=== PATIENT | male | born 1970 | race Caucasian/White ===

== ENCOUNTER → 2016-09-08 | Outpatient (REF) | payer MEDICARE ==
[~2016-09-08] MED LIST: ARTISOL OP; CLON1TAB PO; MELA3TAB17 PO; NAPR500T2 PO; OXYC5TAB2 PO; PRAZ2CAP PO; QUET100T PO; ZOLP-189 PO
[2016-09-08 13:55] LABS: BASO # 0.1 K/mm3 (0.0-0.2); BASO % 0.9 % (0.0-1.0); EOS # 0.2 K/mm3 (0.0-0.50); EOS % 2.7 % (0.0-3.0); LARGE UNSTAINED CELL # 0.2 K/mm3 (0.0-0.4); LARGE UNSTAINED CELL % 3.1 % (0.0-4.0); LYMPH # 2.7 K/mm3 (1.5-4.5); LYMPH % 40.2 % (24.0-44.0); MEAN CORPUSCULAR HEMOGLOBIN 28.9 pg (27.0-33.0); MEAN CORPUSCULAR HGB CONC 34.4 g/dl (32.0-36.5); MEAN CORPUSCULAR VOLUME 84.2 fl (80.0-96.0); MONO # 0.4 K/mm3 (0.0-0.8); MONO % 6.4 % (0.0-5.0); NEUTROPHILS # 3.1 K/mm3 (1.8-7.7); NEUTROPHILS % 46.7 % (36.0-66.0); PLATELET COUNT, AUTOMATED 240 k/mm3 (150-450); RED CELL DISTRIBUTION WIDTH 12.8 % (11.5-14.5); WHITE BLOOD COUNT 6.7 K/mm3 (4.0-10.0)
[2016-09-08 14:34] LABS: ALBUMIN 3.9 GM/DL (3.2-5.2); ALBUMIN/GLOBULIN RATIO 1.11 (1.00-1.93); ALKALINE PHOSPHATASE 148 U/L (45-117); ALT/SGPT 112 U/L (12-78); ANION GAP 11 MEQ/L (8-16); AST/SGOT 62 U/L (15-37); BILIRUBIN,TOTAL 0.8 MG/DL (0.2-1.0); BLOOD UREA NITROGEN 12 MG/DL (7-18); CALCIUM LEVEL 8.9 MG/DL (8.5-10.1); CARBON DIOXIDE LEVEL 24 MEQ/L (21-32); CHLORIDE LEVEL 104 MEQ/L (98-107); CHOLESTEROL LEVEL 196 MG/DL (<200); CREATININE FOR GFR 0.96 MG/DL (0.70-1.30); FERRITIN 299 NG/ML (26-388); GLOMERULAR FILTRATION RATE > 60.0 (>60); GLUCOSE, FASTING 275 MG/DL (70-105); PERCENT SATURATION 25.6 % (19.7-37.4); POTASSIUM SERUM 4.1 MEQ/L (3.5-5.1); SODIUM LEVEL 139 MEQ/L (136-145); TOTAL IRON BINDING CAPACITY 340 UG/DL (250-450); TOTAL PROTEIN 7.4 GM/DL (6.4-8.2); TRIGLYCERIDES LEVEL 201 MG/DL (<150)
== END ==
LOC: M SFHCPLAZ 09:21
PROVIDERS: ATTEND Physician Assistant
DX: R94.5 Abnormal results of liver function studies (principal); R03.0 Elevated blood-pressure reading, without diagnosis of hypertension; R73.9 Hyperglycemia, unspecified; E78.5 Hyperlipidemia, unspecified; Z79.899 Other long term (current) drug therapy

== ENCOUNTER → 2016-09-14 | Outpatient (CLI) | payer MEDICARE ==
--- NOTE | 2016-09-14 09:10 | REP ---
Clinical: Elevated liver function tests. Technique: Real time archibald scale ultrasound examination using curved array transducer. Findings: The liver is upper limits of normal in size and demonstrates diffuse increased echogenicity suggesting fatty infiltration of focal fatty sparing at the gallbladder fossa. No focal hepatic lesions are identified. The pancreas is unremarkable. The gallbladder is normal and without gallstones, wall thickening, or pericholecystic fluid. No biliary ductal dilatation is appreciated and the common bile duct measures 4.4 mm diameter. The right kidney is normal in reniform shape and measures 12.8 x 7.0 x 6.0 cm without hydronephrosis. No ascites in the visualized right upper quadrant. Impression: Fatty infiltration to the liver with focal fatty sparing at the gallbladder fossa. Signed by Nicolás Raza MD 09/14/2016 09:01 A
== END ==
LOC: M RAD 08:12
PROVIDERS: ATTEND Physician Assistant
DX: R94.5 Abnormal results of liver function studies (principal); K76.0 Fatty (change of) liver, not elsewhere classified

== ENCOUNTER → 2016-11-13 | Outpatient (REF) | payer MEDICARE ==
[2016-11-13 13:08] LABS: ALBUMIN 3.7 GM/DL (3.2-5.2); ALBUMIN/GLOBULIN RATIO 1.03 (1.00-1.93); ALKALINE PHOSPHATASE 102 U/L (45-117); ALT/SGPT 55 U/L (12-78); ANION GAP 9 MEQ/L (8-16); AST/SGOT 24 U/L (15-37); BILIRUBIN,TOTAL 0.5 MG/DL (0.2-1.0); BLOOD UREA NITROGEN 14 MG/DL (7-18); CARBON DIOXIDE LEVEL 25 MEQ/L (21-32); CHLORIDE LEVEL 104 MEQ/L (98-107); CHOLESTEROL LEVEL 211 MG/DL (<200); CREATININE FOR GFR 0.99 MG/DL (0.70-1.30); GLOMERULAR FILTRATION RATE > 60.0 (>60); GLUCOSE, FASTING 119 MG/DL (70-105); POTASSIUM SERUM 4.2 MEQ/L (3.5-5.1); SODIUM LEVEL 138 MEQ/L (136-145); TOTAL PROTEIN 7.3 GM/DL (6.4-8.2); TRIGLYCERIDES LEVEL 132 MG/DL (<150)
== END ==
LOC: M SFHCPLAZ 08:07
PROVIDERS: ATTEND Physician Assistant
DX: E11.9 Type 2 diabetes mellitus without complications (principal); E78.5 Hyperlipidemia, unspecified

== ENCOUNTER → 2017-04-07 | Outpatient (CLI) | payer MEDICARE, OTHER ==
[~2017-04-07] MED LIST changes: +ISOVUE-370 76% 100ML VIAL (Q9967) As Ordered ONE
[2017-04-07 15:13] LABS: BLOOD UREA NITROGEN 12 MG/DL (7-18); CREATININE FOR GFR 0.86 MG/DL (0.70-1.30); GLOMERULAR FILTRATION RATE > 60.0 (>60)
--- NOTE | 2017-04-07 16:05 | REP ---
CT pulmonary angiogram: With IV contrast: History: Hemoptysis. Pleurisy. Comparison studies: No comparison studies. Contrast dose: 75 cc's of Isovue [address] technique: Helical scanning is acquired and overlapping 1.5 mm and contiguous 3 mm axial images are reformatted. In addition, a 3-D work station is deployed to generate thick slab maximum intensity projection images in sagittal and coronal imaging projections. CT pulmonary angiographic findings: There is good opacification of the pulmonary arterial tree. There is no CT evidence of pulmonary embolism. The thoracic aorta enhances homogeneously and is normal in course and caliber. No evidence of aneurysm or dissection. There is no evidence of pleural or pericardial effusion. No hilar or mediastinal mass or adenopathy is observed. There is a small pleural plaque in the major fissure on the right versus a small amount of fissural fluid. No pulmonary nodule or infiltrate is seen. No mass lesion is observed. No adrenal lesion is seen on either side. Maximal intensity projection images show no additional abnormality no bony destructive lesion is seen. Impression: No CT evidence of pulmonary embolism. No active disease seen. Signed by Jesse Castorena MD 04/07/2017 05:03 P
== END ==
LOC: M LAB 12:46 → M RAD 12:46
PROVIDERS: ATTEND Internal Medicine Pulmonary Disease
DX: Z01.812 Encounter for preprocedural laboratory examination (principal); R09.1 Pleurisy; R06.00 Dyspnea, unspecified; R04.2 Hemoptysis
CPT/HCPCS: 36415; 71275; 82565; 84520; Q9967

== ENCOUNTER → 2017-04-13 | Outpatient (REF) | payer MEDICARE, OTHER ==
[~2017-04-13] MED LIST changes: -ISOVUE-370 76% 100ML VIAL (Q9967) As Ordered ONE
== END ==
LOC: M LAB REF 16:39
PROVIDERS: ATTEND Otolaryngology
DX: J35.8 Other chronic diseases of tonsils and adenoids (principal)

== ENCOUNTER → 2017-06-01 | Outpatient (CLI) | payer MEDICARE, OTHER ==
[~2017-06-01] MED LIST changes: +METHACHOLINE KIT (J7674) INH ONE
[2017-06-01 09:28] LABS: ABG BASE EXCESS 0.8 (-2.0-2.0); ABG HCO3 25.3 MEQ/L (22.0-26.0); ABG PARTIAL PRESSURE CO2 40.1 mmHg (35.0-45.0); ABG PARTIAL PRESSURE O2 107.3 mmHg (75.0-100.0); ABG STANDARD HCO3 25.2 MEQ/L (22.0-26.0); ABG TOTAL CO2 26.5 MEQ/L (22.0-29.0); ABG pH (ARTERIAL) 7.418 UNITS (7.350-7.450)
--- NOTE | 2017-06-01 09:54 | PFTRPT ---
Tech: Arsenio HADLEY RRT Age: 46 Sex: Male Race: Height: 72.00 Inches Weight: 228.00 Lbs BSA: 2.25 Diagnosis: R06.00 PULMONARY FUNCTION REPORT ORDERING PROVIDER: Minh Gill MD DATE OF SERVICE: 06/01/17 SPIROMETRY: The study is of excellent technical quality. The forced vital capacity is reduced. The FEV1 is in proportion. The obstructive index is, therefore, normal. FLOW VOLUME LOOP: The expiratory limb of the flow volume loop does suggest some nonspecific flow rate limitation. LUNG VOLUMES: The total lung capacity is normal. The residual volume raises a question of air trapping. DIFFUSION CAPACITY: The diffusion capacity is normal. HEMOGLOBIN: Hemoglobin was acceptable at 14.9. AIRWAY MECHANICS: Airway resistance and conductance are normal. IMPRESSION: Cannot rule out air trapping. Please correlate clinically. MTDD
--- NOTE | 2017-06-01 10:51 | PFTRPT ---
Tech: Arsenio HADLEY RRT Age: 46 Sex: Male Race: Height: 72.00 Inches Weight: 228.00 Lbs BSA: 2.25 Diagnosis: R06.00 METHACHOLINE CHALLENGE REPORT ORDERING PROVIDER: Minh Gill MD DATE OF SERVICE: 06/01/17 INTERPRETATION: The study was of excellent technical quality. Under protocol, methacholine was administered. At a dose of 10 mg (63.875 CDUs), a 30% decline in the FEV1 was noted. The PC20 of 3.43 is significant. Flow rates returned to baseline post bronchodilator administration. IMPRESSION: Positive methacholine challenge study. MTDD
== END ==
LOC: M CARPUL 08:51
PROVIDERS: ATTEND Internal Medicine Pulmonary Disease
DX: R06.00 Dyspnea, unspecified (principal)
CPT/HCPCS: 82803; 88738; 94010; 94070; 94726; 94729; 95070; J7674

== ENCOUNTER → 2017-12-15 | Outpatient (REF) | payer MEDICARE, OTHER ==
[2017-12-18 00:12] LABS: D001-IgE D pteronyssinus <0.10 kU/L (Class 0); E001-IgE Cat Epith/Dander < 0.10 kU/L (Class 0); E005-IgE Dog Dander < 0.10 kU/L (Class 0); G002-IgE Bermuda Grass < 0.10 kU/L (Class 0); G008-IgE Kentucky Bluegrass < 0.10 kU/L (Class 0); M001-IgE Penicillium chrysogen < 0.10 kU/L (Class 0); M002 IgE Cladosporium herbaru < 0.10 kU/L (Class 0); M003 IgE Aspergillus fumigatu < 0.10 kU/L (Class 0); M006-IgE Alternaria alternata < 0.10 kU/L (Class 0); T001-IgE Maple/Box Elder < 0.10 kU/L (Class 0); T003-IgE Common Silver Birch < 0.10 kU/L (Class 0); T006-IgE Cedar, Mountain < 0.10 kU/L (Class 0); T007-IgE Oak, White < 0.10 kU/L (Class 0); T008-IgE Elm, American < 0.10 kU/L (Class 0); T015-IgE Ash, White < 0.10 kU/L (Class 0); T041-IgE Hickory, White < 0.10 kU/L (Class 0); T070-IgE White Mulberry < 0.10 kU/L (Class 0); W001-IgE Ragweed, Short < 0.10 kU/L (Class 0); W009-IgE Plantain, English < 0.10 kU/L (Class 0); W014-IgE Pigweed, Rough < 0.10 kU/L (Class 0); W018-IgE Sheep Sorrel < 0.10 kU/L (Class 0)
== END ==
LOC: M LAB REF 12:51
DX: J45.30 Mild persistent asthma, uncomplicated (principal)
CPT/HCPCS: 82785

== ENCOUNTER → 2019-06-30 | Outpatient (CLI) | payer OTHER ==
[~2019-06-30] MED LIST changes: -METHACHOLINE KIT (J7674) INH ONE
--- NOTE | 2019-06-30 13:49 | REP ---
MRI lumbar spine: 06/30/2019. Indication: Low back pain. Comparison: None. Technique: Multiplanar short and long TR sequences of the lumbar spine were obtained without IV Gadolinium. Findings: Vertebral body alignment is anatomic. No worrisome marrow or cord signal abnormalities are present. There is disc desiccation and mild disc space narrowing at L5/S1 and to a lesser extent L4/L5. No significant paraspinal soft tissue abnormalities are detected. L1/L2, L2/L3 and L3/L4: There is no disc herniation or significant spinal canal / neural foraminal narrowing. L4/L5: Mild diffuse disc bulge, bilateral facet and ligamental hypertrophy are present. Moderate left greater than right recess narrowing is present. There is mild to moderate bilateral neural foraminal narrowing. L5/S1: There is a small left paracentral disc protrusion superimposed on a mild diffuse disc bulge with bilateral facet hypertrophy. There is moderate to severe left and moderate right recess narrowing. The neural foramen are patent. Impression: Degenerative sequelae of the lower lumbar spine as described most pronounced on the left at L5/S1. Electronically Signed by Marvin Larson DO 06/30/2019 01:40 P
== END ==
LOC: M RAD 12:06
PROVIDERS: ATTEND Internal Medicine
DX: M51.26 Other intervertebral disc displacement, lumbar region (principal); M51.27 Other intervertebral disc displacement, lumbosacral region; M46.97 Unspecified inflammatory spondylopathy, lumbosacral region; M48.07 Spinal stenosis, lumbosacral region

== ENCOUNTER → 2019-09-05 | Outpatient (CLI) | payer BC, MEDICARE ==
[2019-09-05 09:41] LABS: FREE T4 1.14 NG/DL (0.76-1.46); THYROID STIMULATING HORMONE 1.22 uIU/ML (0.358-3.740)
[2019-09-05 10:15] LABS: TOTAL 25(OH) VITAMIN D 65.7 NG/ML (30.0-100.0)
[2019-09-05 10:16] LABS: CORTISOL AM 8.3 UG/DL (4.3-22.4)
== END ==
LOC: M LAB 08:25
PROVIDERS: ATTEND Nurse Practitioner Family
DX: R63.5 Abnormal weight gain (principal); E55.9 Vitamin D deficiency, unspecified; G90.09 Other idiopathic peripheral autonomic neuropathy; Z79.899 Other long term (current) drug therapy

== ENCOUNTER 2019-09-19 16:45 | Day surgery (SDC) | payer MEDICARE ==
[~2019-09-19] VITALS: Ht 182.9 cm; Wt 116.7 kg
[2019-09-19] MEDS ORDERED: CLON1TAB8 (16:56)
[2019-09-19] MEDS ORDERED: LISI-542 (16:56)
[2019-09-19] MEDS ORDERED: ZOLP10TA2 (16:56)
[2019-09-19] MEDS ORDERED: AMOX875T2 (16:56)
[2019-09-19] MEDS ORDERED: METF850T4 (16:56)
[2019-09-19 17:27] LABS: BASO # 0.1 10^3/uL (0.0-0.2); BASO % 0.5 % (0.0-1.0); EOS % 0.2 % (0.0-3.0); HEMATOCRIT 44.2 % (42.0-52.0); HEMOGLOBIN 15.4 g/dl (13.5-17.5); LYMPH # 3.2 10^3/uL (1.5-5.0); LYMPH % 18.7 % (24.0-44.0); MEAN CORPUSCULAR HEMOGLOBIN 28.4 pg (27.0-33.0); MEAN CORPUSCULAR HGB CONC 34.8 g/dl (32.0-36.5); MEAN CORPUSCULAR VOLUME 81.4 fl (80.0-96.0); MONO # 1.4 10^3/uL (0.0-0.8); MONO % 8.3 % (0.0-5.0); NEUTROPHILS # 12.3 10^3/uL (1.5-8.5); PLATELET COUNT, AUTOMATED 254 10^3/uL (150-450); RED BLOOD COUNT 5.43 10^6/uL (4.30-6.10); WHITE BLOOD COUNT 17.2 10^3/uL (4.0-10.0)
[2019-09-19 17:36] LABS: APPEARANCE, URINE CLEAR (CLEAR); BACTERIA, URINE AUTO NEGATIVE (NEGATIVE); BILIRUBIN, URINE AUTO NEGATIVE (NEGATIVE); BLOOD, URINE BLOOD NEGATIVE (NEGATIVE); COLOR, URINE YELLOW (YELLOW); GLUCOSE, URINE (UA) AUTO 1+ mg/dL (NEGATIVE); KETONE, URINE AUTO NEGATIVE (NEGATIVE); LEUKOCYTE ESTERASE, URINE AUTO NEGATIVE (NEGATIVE); NITRITE, URINE AUTO NEGATIVE (NEGATIVE); PROTEIN, URINE AUTO NEGATIVE (NEGATIVE); RBC, URINE AUTO 2 /HPF (0-3); SPECIFIC GRAVITY URINE AUTO 1.005 (1.002-1.035); SQUAMOUS EPITHELIAL CELL UR AU 0 /HPF (0-6); UROBILINOGEN, URINE AUTO 0.2 mg/dL (0.0-2.0); WBC, URINE AUTO 1 /HPF (0-3)
[2019-09-19] MEDS ORDERED: NS 1,000 ML IV ONE (17:45)
[2019-09-19 17:51] LABS: ALBUMIN 3.9 GM/DL (3.2-5.2); BILIRUBIN,DIRECT 0.2 MG/DL (0.0-0.2); BILIRUBIN,TOTAL 0.8 MG/DL (0.2-1.0); TOTAL PROTEIN 7.5 GM/DL (6.4-8.2)
[2019-09-19] MEDS ORDERED: ISOVUE-370 76% 100ML VIAL (Q9967) As Ordered ONE (17:52)
--- NOTE | 2019-09-19 18:26 | REPVR ---
PROCEDURE INFORMATION: Exam: CT Abdomen And Pelvis With Contrast Exam date and time: 09/19/2019 5:56 PM Age: 49 years old Clinical indication: Pain and abnormal findings; Abnormal lab test; Elevated wbc; Fever and vomiting; Abdominal pain; Localized; Right upper quadrant (ruq); Additional info: Ruq abd pain, vomiting, fever, wbc 17.2 TECHNIQUE: Imaging protocol: Computed tomography of the abdomen and pelvis with intravenous contrast. Radiation optimization: All CT scans at this facility use at least one of these dose optimization techniques: automated exposure control; mA and/or kV adjustment per patient size (includes targeted exams where dose is matched to clinical indication); or iterative reconstruction. Contrast material: ISOVUE 370; Contrast volume: 100 ml; Contrast route: IV; COMPARISON: LIVER US 09/14/2016 8:27 AM FINDINGS: Lungs: Atelectatic changes are identified within both lower lobes of the lungs. Diaphragm: There is elevation of the right hemidiaphragm. Liver: There is hypodense fatty infiltration of the liver. The liver measures 19.8 cm in the craniocaudad dimension. This is consistent with hepatomegaly. Gallbladder and bile ducts: Gallstones are visualized. There is mild gallbladder wall thickening with pericholecystic fluid, consistent with acute cholecystitis in the appropriate clinical setting. Pancreas: Unremarkable. No ductal dilation. Spleen: A small splenule is identified. No splenomegaly. Adrenals: No mass. Kidneys and ureters: Unremarkable as visualized. No hydronephrosis. Stomach and bowel: There is mild stranding of the mesenteric fat adjacent to the gallbladder and hepatic flexure of the colon, consistent with inflammatory change. Mild wall thickening of the duodenum with minimal adjacent stranding. Duodenitis is considered. No bowel obstruction. Appendix: No evidence of appendicitis. Intraperitoneal space: No free air. No significant fluid collection. Vasculature: No abdominal aortic aneurysm. Lymph nodes: No enlarged lymph nodes. Bladder: Unremarkable as visualized. Reproductive: Unremarkable as visualized. Bones/joints: Small nonspecific sclerotic lesions are identified within the proximal right femur. Hypertrophic degenerative changes are noted within the spine. Bilateral sacroiliac arthropathy. There is an old fracture of the posterior left 7th rib. Soft tissues: Unremarkable. IMPRESSION: 1. Gallstones are visualized. There is mild gallbladder wall thickening with pericholecystic fluid, consistent with acute cholecystitis in the appropriate clinical setting. 2. There is mild stranding of the mesenteric fat adjacent to the gallbladder and hepatic flexure of the colon, consistent with inflammatory change. 3. Mild wall thickening of the duodenum with minimal adjacent stranding. Duodenitis is considered. 4. There is hypodense fatty infiltration of the liver. Hepatomegaly. 5. Elevation of the right hemidiaphragm. 6. Additional findings described above. Electronically signed by: Benton Ansari On 09/19/2019 18:26:16 PM
[2019-09-19] MEDS: LR 1,000 ML IV SCH (20:41)
[2019-09-19] MEDS ORDERED: ACETAMINOPHEN TAB 650MG DOSE (2X325MG) PO PRN (20:45)
[2019-09-19] MEDS ORDERED: GLUCAGON FOR INJ 1 MG VIAL (J1610) SC PRN (20:45)
[2019-09-19] MEDS ORDERED: LR 1,000 ML IV SCH (20:45)
[2019-09-19] MEDS ORDERED: GLUCOSE 4 GM CHEW TABLET PO PRN (20:45)
[2019-09-19] MEDS ORDERED: DEXTROSE 50% 50 ML SYRINGE IV PRN (20:45)
[2019-09-19] MEDS ORDERED: MORPHINE 2 MG/ML 1ML VIAL (J2270) IV PRN (20:45)
[2019-09-19] MEDS ORDERED: ONDANSETRON 4MG/2ML VIAL (J2405) IV PRN (20:45)
[2019-09-19] MEDS ORDERED: lisinopriL 5 MG TAB PO SCH (21:00)
[2019-09-19] MEDS ORDERED: IBUP1TAB6 PO (21:16)
[2019-09-19] MEDS ORDERED: AUGM875T28 PO (21:16)
[2019-09-19] MEDS ORDERED: LISI-542 PO (21:16)
[2019-09-19] MEDS ORDERED: METF-954 PO (21:16)
[2019-09-19] MEDS ORDERED: FISH1000 PO (21:16)
[2019-09-19] MEDS ORDERED: CLON1TAB8 PO (21:16)
[2019-09-19] MEDS ORDERED: ZOLP10TA2 PO (21:16)
[2019-09-19] MEDS ORDERED: ACET-897 PO (21:16)
[2019-09-19] MEDS ORDERED: REFR0.5D8 OU (21:23)
[2019-09-19] MEDS ORDERED: OXYC-517 PO (21:23)
[2019-09-19] MEDS ORDERED: ADV250INH INH (21:23)
[2019-09-19] MEDS ORDERED: PROAAER10 INH (21:31)
[2019-09-19] MEDS ORDERED: RA B1TAB7 PO (21:31)
[2019-09-19] MEDS ORDERED: LIDO2.5C15 TOP (21:31)
[2019-09-19] MEDS ORDERED: MIRA1POW3 PO (21:31)
[2019-09-19] MEDS ORDERED: ROSU40TA4 PO (21:31)
[2019-09-19] MEDS ORDERED: VITA200038 PO (21:31)
[2019-09-19] MEDS ORDERED: ACETAMINOPHEN TAB 650MG DOSE (2X325MG) As Ordered ONE (21:38)
--- NOTE | 2019-09-19 22:17 | HPE ---
DATE OF ADMISSION: 09/19/2019 ADMITTING DIAGNOSIS: Acute cholecystitis secondary to cholelithiasis. HISTORY OF PRESENT ILLNESS The patient is a pleasant 49-year-old man who reports that he had retired to bed last evening at about 09:00 p.m.. He was awakened about midnight with an episode of severe mid abdominal pain. He describes that he felt full. After a time he developed vomiting and reports that he vomited multiple times first some undigested food and then just bile. He reported feeling as if he had gas bubbles and subsequently belched several times. By about 7 o'clock in the morning he reported that the discomfort had diminished quite a bit. He had a light breakfast of half a peanut butter sandwich. He had had meatloaf for dinner the night before followed by his usual routine of a bowl of Cheerios late at night with his night time meds. He had some persistent mild abdominal discomfort which persisted. This was primarily in the right upper quadrant. He had a couple of biscuits in the afternoon. Somewhat thereafter he felt feverish. He had contacted his physician in the [facility] and he was subsequently referred to [facility] for further evaluation. In the emergency department he presented at 1645. He was found to have some tachycardia. He had tenderness in the right upper quadrant. He was evaluated with some laboratory studies that showed a white count elevated to 17,000 with a differential showing 72% neutrophils, 19% lymphocytes and 8% monocytes. His chemistry profile showed normal electrolytes with BUN of 11, creatinine 0.8, and a glucose of 115. Lactic acid was minimally elevated at 2.1. Amylase was normal and lipase was normal and the liver function tests showed a minimal elevation of the ALT to 93. A CT scan of the abdomen and pelvis was obtained which showed a markedly thickened gallbladder with suggestion of cholelithiasis and some pericholecystic fluid consistent with acute cholecystitis. I was consulted and the patient is now admitted for management of his acute cholecystitis. ALLERGIES The patient denies any known drug allergies. MEDICATIONS His current home medications include Augmentin 875/125 one tablet twice daily. This was started last week when he had a toenail excision. He is on clonazepam 1 mg by mouth nightly at bedtime, zolpidem tartrate 10 mg by mouth daily at bedtime, metformin 850 mg tablets one twice daily and lisinopril 5 mg p.o. daily at bedtime. PAST SURGICAL HISTORY: Significant only for a septoplasty. PAST MEDICAL HISTORY: Significant for type 2 diabetes over the last 3 years or so. He is currently on metformin twice daily. He reports that he saw the straddle bug last Wednesday which would have been the . His A1c most recently was 6.1. FAMILY HISTORY: Noncontributory. SOCIAL HISTORY The patient is single. He reports that he has a son who is 19 and a daughter who is 14. He is disabled and not employed currently. He is a lifetime nonsmoker and denies any significant alcohol intake. REVIEW OF SYSTEMS: Reveals no history of chest pain or palpitations or other cardiac issues. He denies melena, hematochezia, diarrhea, constipation. He has had a colonoscopy back in 2010. There is no dysuria, hematuria or renal stones. He denies any history of seizure or stroke, chronic or severe headaches. There are no significant bone or joint issues currently. There is no history of deep venous thrombosis (DVT) or pulmonary embolus. PHYSICAL EXAMINATION The patient's vital signs most recently show a temperature of 101 degrees with a pulse of approximately 100. His blood pressure in the emergency department has been slightly high in the systolic range of 146 and 158 as recorded. Room air oxygen saturation is normal. The patient is alert and oriented. He reports that he has been having what sounds like some rigors while lying here in the emergency department. Skin: Is warm and dry. Mucous membranes are moist. Sclerae are anicteric. Neck is supple. Heart: Exam shows a regular rhythm at about 100. The lungs are clear to auscultation bilaterally. The abdomen is mildly to moderately obese. The abdomen has active bowel sounds in all four quadrants. The abdomen is soft. There is some mild tenderness on palpation in the right subcostal area and the remainder of the abdomen is soft and without palpable mass or tenderness. There is no sign of hernia. Extremities: Shows no peripheral edema and he has palpable radial and pedal pulses bilaterally. LABS: Laboratory studies show a white count of 17 and the diff was as noted. His hemoglobin is 15 with a hematocrit of 44 and a platelet count of 254,000. His chemistries are as otherwise noted previously. He had a urinalysis that showed no signs of urinary tract infection. His CT scan showed findings consistent with acute cholecystitis. IMPRESSION 1. Acute cholecystitis secondary to cholelithiasis. 2. Diabetes mellitus type 2. 3. Hypercholesterolemia. 4. Current antibiotic therapy for toenail excision. PLAN Patient has less discomfort than I might anticipate at this point, though his CT scan is typical of acute cholecystitis. He has a fever and has been having rigors in the emergency department. It may be that his acute cholecystitis despite his relatively good diabetes control at this point has progressed faster due to his underlying diabetes. He does have some very mild tenderness in the right upper quadrant on palpation. I have recommended that we admit him to the hospital. We may be able to accomplish this all as a same-day surgery status and I will start there. He will be placed on some Zosyn for antibiotic coverage. I will keep him nothing by mouth (npo) except for a few ice chips tonight. I will recheck his labs in the morning. I have counseled him that he will need a cholecystectomy and that this can likely be accomplished as a laparoscopic procedure. He had an opportunity to ask questions. We will discuss the details of the surgery a little bit further in the morning but I will add him onto the schedule to have surgery in the morning where there appears to be an opening in the schedule that would allow us to proceed sometime in the late morning to around noontime. We will manage his diabetes with every 6-hour fingersticks and sliding scale insulin as necessary. His metformin will be held for now as he received contrast for his CT scan.
[2019-09-19 22:50] VITALS: BP 143/86
[2019-09-19] MEDS: PIPERACILLIN/TAZOBACTAM SOD 3.375 GM in D5W MINI-BAG PLUS 50 ML IV SCH (23:07)
[2019-09-19] MEDS: zolPIDEM TARTRATE 5 MG TAB PO SCH (23:09)
[2019-09-19] MEDS: clonazePAM 1 MG TAB PO SCH (23:09)
[2019-09-19] MEDS: LISINOPRIL *2.5 MG* TAB PO SCH (23:52)
[2019-09-20] VITALS (10 sets, daily range): BP systolic 124–139; BP diastolic 65–88
[2019-09-20] MEDS: HumaLOG INSULIN (NovoLOG) PER UNIT SC SCH ×4 (00:10→17:59)
[2019-09-20] MEDS: PIPERACILLIN/TAZOBACTAM SOD 3.375 GM in D5W MINI-BAG PLUS 50 ML IV SCH ×4 (04:06→21:23)
[2019-09-20] MEDS: LR 1,000 ML IV SCH ×2 (05:23→12:41)
[2019-09-20 06:16] LABS: BASO # 0.1 10^3/uL (0.0-0.2); BASO % 0.7 % (0.0-1.0); EOS # 0.1 10^3/uL (0.0-0.5); EOS % 0.7 % (0.0-3.0); HEMATOCRIT 40.4 % (42.0-52.0); HEMOGLOBIN 13.7 g/dl (13.5-17.5); LYMPH # 3.2 10^3/uL (1.5-5.0); LYMPH % 26.3 % (24.0-44.0); MEAN CORPUSCULAR HEMOGLOBIN 28.1 pg (27.0-33.0); MEAN CORPUSCULAR HGB CONC 33.9 g/dl (32.0-36.5); MONO # 1.3 10^3/uL (0.0-0.8); MONO % 10.4 % (0.0-5.0); NEUTROPHILS # 7.5 10^3/uL (1.5-8.5); NEUTROPHILS % 61.5 % (36.0-66.0); PLATELET COUNT, AUTOMATED 209 10^3/uL (150-450); RED BLOOD COUNT 4.87 10^6/uL (4.30-6.10); WHITE BLOOD COUNT 12.3 10^3/uL (4.0-10.0)
[2019-09-20 06:41] LABS: ALBUMIN 3.4 GM/DL (3.2-5.2); ALT/SGPT 67 U/L (12-78); BILIRUBIN,TOTAL 1.5 MG/DL (0.2-1.0); BLOOD UREA NITROGEN 10 MG/DL (7-18); CALCIUM LEVEL 8.3 MG/DL (8.5-10.1); CARBON DIOXIDE LEVEL 29 MEQ/L (21-32); CHLORIDE LEVEL 106 MEQ/L (98-107); CREATININE FOR GFR 1.01 MG/DL (0.70-1.30); GLOMERULAR FILTRATION RATE > 60.0 (>60); GLUCOSE, FASTING 122 MG/DL (70-100); POTASSIUM SERUM 3.4 MEQ/L (3.5-5.1); SODIUM LEVEL 140 MEQ/L (136-145); TOTAL PROTEIN 6.8 GM/DL (6.4-8.2)
[2019-09-20] MEDS ORDERED: BUPIVACAINE HCL 0.25% 30ML VIAL As Ordered ONE (10:18)
[2019-09-20] MEDS ORDERED: BUPIVACAINE HCL 0.5% 30 ML VIAL As Ordered ONE (10:18)
[2019-09-20] MEDS ORDERED: LIDOCAINE 2% INJ 100 MG/5 ML SDV (FOR ANES.) As Ordered ONE (11:43)
[2019-09-20] MEDS ORDERED: fentaNYL 250 MCG/5 ML INJECTION (J3010) As Ordered ONE (11:43)
[2019-09-20] MEDS ORDERED: dexameTHASONE 4 MG/ML 1ML VIAL (J1100) As Ordered ONE (11:43)
[2019-09-20] MEDS ORDERED: KETOROLAC 60 MG/2 ML VIAL (J1885) As Ordered ONE (11:43)
[2019-09-20] MEDS ORDERED: propofoL 200 MG/20 ML VIAL As Ordered ONE (11:43)
[2019-09-20] MEDS ORDERED: MIDAZOLAM INJ 2 MG/2 ML VIAL (J2250) As Ordered ONE (11:43)
[2019-09-20] MEDS ORDERED: ONDANSETRON 4MG/2ML VIAL (J2405) As Ordered ONE (11:43)
[2019-09-20] MEDS ORDERED: ROCURONIUM BROMIDE 50 MG/5 ML VIAL As Ordered ONE (11:43)
[2019-09-20] MEDS ORDERED: SUGAMMADEX SODIUM 500 MG/5 ML VIAL (BRIDION) As Ordered ONE (11:46)
[2019-09-20] MEDS ORDERED: ALBUTEROL 90 MCG/ACT 8GM HFA INHALER INH PRN (13:30)
[2019-09-20] MEDS ORDERED: oxyCODONE 5MG TAB PO PRN ×2 (13:30→13:45)
[2019-09-20] MEDS ORDERED: clonazePAM 1 MG TAB PO PRN (13:30)
[2019-09-20] MEDS ORDERED: IBUPROFEN 600 MG TAB PO PRN (13:30)
[2019-09-20] MEDS ORDERED: NORCO, ANEXSIA 5/325MG TABLET (HYDROcodone/ACETAMINOPHEN) PO PRN (13:30)
[2019-09-20] MEDS ORDERED: METOCLOPRAMIDE INJ 10MG/2ML VIAL (J2765) IV PRN (13:45)
[2019-09-20] MEDS ORDERED: LR 1,000 ML IV SCH (13:45)
[2019-09-20] MEDS ORDERED: ONDANSETRON 4MG/2ML VIAL (J2405) IV PRN (13:45)
[2019-09-20] MEDS ORDERED: fentaNYL 100 MCG/2 ML INJECTION (J3010) IV PRN (13:45)
[2019-09-20] MEDS: ADVAIR HFA 115/21MCG INHALER INH SCH ×2 (14:14→19:50)
[2019-09-20] MEDS: clonazePAM 1 MG TAB PO SCH (21:00)
[2019-09-20] MEDS: LISINOPRIL *2.5 MG* TAB PO SCH (21:00)
[2019-09-20] MEDS ORDERED: ROSUVASTATIN 10 MG TAB (CRESTOR) PO SCH (21:00)
[2019-09-20] MEDS: zolPIDEM TARTRATE 5 MG TAB PO SCH (21:00)
--- NOTE | 2019-09-21 08:52 | RO ---
DATE OF PROCEDURE: 09/20/2019 PREOPERATIVE DIAGNOSIS: Acute cholecystitis. POSTOPERATIVE DIAGNOSIS: Acute cholecystitis. PROCEDURE PERFORMED: Laparoscopic cholecystectomy. SURGEON: Dr. Mandujano ANESTHESIA: General. INDICATIONS FOR PROCEDURE: The patient is a 49-year-old man who had presented to the hospital with a history of upper abdominal pain. He was found to have an elevated white blood cell count and a CT scan showed marked thickening of the gallbladder wall consistent with acute cholecystitis. He was admitted and started on IV antibiotics and is now for laparoscopic cholecystectomy. OPERATIVE PROCEDURE: The patient was brought to the operating room and placed on the table in a supine position. He was placed under general endotracheal anesthesia. The patient's abdomen was prepped and draped in a sterile fashion. 0.25% Marcaine was infiltrated at each of the trocar sites as needed. A short longitudinal midline incision was made just above the umbilicus. A Veress needle was inserted and after positive hanging drop test the abdomen was insufflated with carbon dioxide gas. The fascia was incised at the needle entry site and a 12 mm laparoscopic port was placed. The 5 mm endoscope was inserted. Initial examination showed normal-appearing liver. There was some omental fat that came up over the right lobe of the liver and obscured the area of the gallbladder. Visualized portions of the stomach and small and large bowel appeared normal. The patient was tilted to a reverse Trendelenburg position and rolled slightly to the left. A 5-mm port was placed in the left upper quadrant. The omentum was pulled down off of the liver and some exudate was noted along the medial aspect of the gallbladder, which was noted to be erythematous and edematous. Two 5 mm ports were placed in the right upper quadrant. Some adhesions of the omentum to the fundus of the gallbladder were divided using the cautery. The gallbladder was then grasped and elevated. Some additional adhesions of the gallbladder to the omentum near the gallbladder neck were also lysed. The gallbladder and liver could then be better elevated. Dissection was begun near the gallbladder neck. The peritoneum was incised on both sides of the gallbladder and dissection continued. A small arterial branch was identified coursing to the medial aspect of the gallbladder neck and this was doubly clipped and divided. With further dissection a second arterial branch and the cystic duct were both clearly identified and dissected free from surrounding structures. The artery was doubly clipped with hemoclips and divided. The cystic duct was also doubly clipped with hemoclips and divided. The gallbladder was then dissected free from the gallbladder bed using cautery dissection. The gallbladder was perforated with release of some thick dark bile. This was all suctioned from the gallbladder and from the subhepatic space. Dissection of the gallbladder was completed and the gallbladder was placed in an Endopouch. The right upper quadrant was copiously irrigated with saline and the irrigation was removed as thoroughly as possible. Final inspection revealed no evidence of bleeding or bile leak. The patient was returned to a flat position. The abdomen was deflated and the trocars were all removed. The gallbladder was recovered through the supraumbilical site, which required extending the fascial and with incision an additional 6-8 mm. There did seem to be some small stones palpable within the gallbladder. This was sent for permanent pathology. The fascia at the supraumbilical site was closed with interrupted simple sutures of 2-0 Vicryl. The skin incisions were all closed with buried 4-0 Vicryl and Steri-Strips. Light dressings were applied. The patient tolerated the procedure well without apparent complication. He was awakened in the operating room, extubated and moved to the recovery room in stable condition.
== END 2019-09-20 21:47 | disposition home or self-care (01) ==
LOC: M ED 16:45 → M SDC 16:46 → ENRESERVDT 22:02 → ENRESERVTM 22:02 → M MSPAV 22:48 → M SDC 09-20 21:47
PROVIDERS: ATTEND Surgery
DX: K80.10 Calculus of gallbladder with chronic cholecystitis without obstruction (principal); E11.9 Type 2 diabetes mellitus without complications; I10 Essential (primary) hypertension; E78.00 Pure hypercholesterolemia, unspecified; Z79.84 Long term (current) use of oral hypoglycemic drugs; Z79.899 Other long term (current) drug therapy
CPT/HCPCS: 36415; 47562; 74177; 80047; 80053; 80076; 81001; 82150; 83605; 83690; 85025; 87040; 88304; 94640; 96361; 96365; 96366; 99284; J1100; J1885; J2250; J2405; J2543; J3010; Q9967

== ENCOUNTER → 2020-11-12 | Outpatient (REF) | payer MEDICARE, OTHER ==
[~2020-11-12] MED LIST changes: +ACET-897 PO; +ADV250INH INH; +AMOX875T2; +AUGM875T28 PO; +CLON1TAB8; +CLON1TAB8 PO; +FISH1000 PO; +IBUP1TAB6 PO; +LIDO1CRE42 TOP; +LISI-898; +LISI-898 PO; +METF-954 PO; +METF850T4; +MIRA1POW3 PO; +OXYC-517 PO; +PROAAER10 INH; +RA B1TAB7 PO; +REFR0.5D8 OU; +ROSU40TA4 PO; +VITA200038 PO; +ZOLP10TA2; +ZOLP10TA2 PO
[2020-11-12 18:58] LABS: CREATININE, URINE 16.2 MG/DL; MALB URINE SIEMENS 7.8 MG/L; MAU/CREAT RATIO 48.1 MCG/MG (0.0-30.0)
== END ==
LOC: M LAB REF 16:54
PROVIDERS: ATTEND Nurse Practitioner Family
DX: E11.65 Type 2 diabetes mellitus with hyperglycemia (principal); Z79.84 Long term (current) use of oral hypoglycemic drugs

== ENCOUNTER 2022-01-09 08:38 | Emergency (ER) | payer MEDICARE, OTHER ==
[~2022-01-09] VITALS: Ht 182.9 cm; Wt 106.0 kg
[~2022-01-09 08:38] MED LIST changes: -LISI-898; -LISI-898 PO; +LISI5TAB11; +LISI5TAB11 PO; +METF-1191 PO; -METF-954 PO
[2022-01-09] MEDS ORDERED: CELE1CAP9 PO (09:01)
[2022-01-09 09:29] LABS: BASO # 0.1 10^3/uL (0.0-0.2); BASO % 1.2 % (0.0-1.0); EOS # 0.2 10^3/uL (0.0-0.5); HEMOGLOBIN 15.9 g/dl (13.5-17.5); LYMPH # 2.6 10^3/uL (1.5-5.0); LYMPH % 30.3 % (24.0-44.0); MEAN CORPUSCULAR HEMOGLOBIN 29.3 pg (27.0-33.0); MEAN CORPUSCULAR HGB CONC 35.3 g/dl (32.0-36.5); MEAN CORPUSCULAR VOLUME 82.9 fl (80.0-96.0); MONO # 0.8 10^3/uL (0.0-0.8); MONO % 8.9 % (2.0-8.0); NEUTROPHILS # 4.8 10^3/uL (1.5-8.5); NEUTROPHILS % 57.4 % (36.0-66.0); PLATELET COUNT, AUTOMATED 228 10^3/uL (150-450); RED BLOOD COUNT 5.43 10^6/uL (4.30-6.10); WHITE BLOOD COUNT 8.4 10^3/uL (4.0-10.0)
[2022-01-09 10:14] LABS: ALBUMIN 4.5 GM/DL (3.2-5.2); ALT/SGPT 49 U/L (12-78); BILIRUBIN,DIRECT 0.3 MG/DL (0.0-0.2); BILIRUBIN,TOTAL 1.1 MG/DL (0.2-1.0); BLOOD UREA NITROGEN 13 MG/DL (7-18); CALCIUM LEVEL 9.8 MG/DL (8.5-10.1); CARBON DIOXIDE LEVEL 29 MEQ/L (21-32); CHLORIDE LEVEL 104 MEQ/L (98-107); CREATININE FOR GFR 0.96 MG/DL (0.70-1.30); GLOMERULAR FILTRATION RATE > 60.0 (>60); GLUCOSE, FASTING 102 MG/DL (70-100); LIPASE 258 U/L (73-393); POTASSIUM SERUM 4.6 MEQ/L (3.5-5.1); SODIUM LEVEL 140 MEQ/L (136-145)
[2022-01-09] MEDS ORDERED: ISOVUE-370 76% 100ML VIAL As Ordered ONE (11:44)
[2022-01-09] MEDS ORDERED: METH-1165 PO (13:16)
[2022-01-09 13:26] VITALS: BP 134/79
== END 2022-01-09 13:28 | disposition home or self-care (01) ==
LOC: M ED 08:38
DX: M54.41 Lumbago with sciatica, right side (principal); E11.9 Type 2 diabetes mellitus without complications; Z79.4 Long term (current) use of insulin; Z79.899 Other long term (current) drug therapy
CPT/HCPCS: 36415; 74177; 80053; 81001; 82248; 83690; 85025; 99284; Q9967